=== PATIENT | male | born 2005 | race Caucasian/White ===

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

== ENCOUNTER 2025-08-26 15:48 | Emergency (ER) | payer MEDICAID ==
[2025-08-26 16:06] VITALS: TEMP 97
[2025-08-26] MEDS ORDERED: Ativan 2 MG/1 ML VIAL ONE (16:23)
--- NOTE | 2025-08-26 16:28 | ERPHSYRPT ---
- History of Present Illness Time Seen by Provider: 08/26/25 15:54 Source: patient Exam Limitations: no limitations Patient Subjective Stated Complaint: . Triage Nursing Assessment: . Physician History: Patient is an everyday drinker presenting with request to become sober. Patient states that he has been drinking alcohol almost every day for 2 years. States that he has hit rock bottom. Patient states that he has been drinking a case of beer a day plus hard liquor. He states all this initiated when he was unable to see his son anymore. States that he has lost his job. He is currently living with friends. He has no other falls or trauma. States that his last drink was last night. Currently has no suicidal homicidal ideation. Reviewing patient's chart he does have a history of suicidal ideation and polysubstance abuse. Patient states he is willing to do anything to quit drinking and is willing to be admitted to the hospital or transferred to a care facility voluntarily. Allergies/Adverse Reactions: amoxicillin [Amoxicillin] Allergy (Verified 08/26/25 15:55) Penicillins Allergy (Verified 08/26/25 15:55) Hx Tetanus, Diphtheria Vaccination/Date Given: No Hx Influenza Vaccination/Date Given: No Hx Pneumococcal Vaccination/Date Given: No Immunizations Up to Date: Yes Travel Risk - International Travel Have you traveled outside of the country in past 3 weeks: No - Emerging Infectious Disease Are you exhibiting symptoms associated with any current EIDs: No - Past Medical History Psycho-Social History: Depression - Past Surgical History Past Surgical History: Yes Neuro Surgical History: No Pertinent History Cardiac: No Pertinent History Respiratory: No Pertinent History Gastrointestinal: No Pertinent History Genitourinary: No Pertinent History Musculoskeletal: Orthopedic Surgery Other Surgical History: right wrist - Social History Smoking Status: Current every day smoker Exposure to second hand smoke: Yes Drug Use: marijuana - Social Determinants of Health Will the patient participate in the screening: Yes Do you worry about a steady place to live?: No Do you have any problems with any of the following?: No known problems In the past 12 months,have you had to go without utilities?: No Transportation Issues: No Has anyone in your support network made you feel unsafe?: No Have you or anyone in your house had to go w/o enough food: No - Nursing Vital Signs Nursing Vital Signs: Initial Vital Signs Pulse Rate 106 H 08/26/25 16:00 Respiratory Rate 16 08/26/25 16:00 Blood Pressure 134/85 08/26/25 16:00 O2 Sat by Pulse Oximetry 98 08/26/25 16:00 Pain Scale Pain Intensity 0 - Physical Exam SpO2 Interpretation: normal SpO2: 97 Comments: 08/26/25 16:25 Review of Systems Constitutional: Negative for fever. HENT: Negative for congestion. Respiratory: Negative for shortness of breath. Cardiovascular: Negative for chest pain. Gastrointestinal: Negative for abdominal pain. Genitourinary: Negative for dysuria. Musculoskeletal: Negative for back pain. Skin: Negative for rash. Neurological: Negative for headaches. Psychiatric/Behavioral: Negative for behavioral problems. All other systems reviewed and are negative. Physical Exam Vitals signs and nursing note reviewed. Constitutional: Appearance: Patient is well-developed. Diaphoresis HENT: Head: Normocephalic and atraumatic. Eyes: Conjunctiva/sclera: Conjunctivae normal. Neck: Musculoskeletal: Normal range of motion. Trachea: No tracheal deviation. Cardiovascular: Rate and Rhythm: Tachycardia. heart sounds normal. Pulmonary: Effort: Pulmonary effort is normal. No respiratory distress. Abdominal: Palpations: Abdomen is soft. Musculoskeletal: General: No deformity. Skin: General: Skin is warm and dry. Neurological/ Psychiatric: Mental Status: Mental status, behavior, interaction with environment is appropriate for patient's age and condition - Course Nursing assessment & vital signs reviewed: Yes EKG Interpreted by Me: Sinus Rhythm (EKG demonstrates sinus rhythm, rate of 107, ME interval 128, QRS 95, QTc is 423, no STEMI or other ST changes) Ordered Tests: Active Orders 24 hr Category Date Time Status Acoustical Material Worker STAT Care 08/26/25 16:08 Active EKG-ER Only STAT Care 08/26/25 16:07 Active IV Insertion STAT Care 08/26/25 16:07 Active ACETAMINOPHEN Stat Lab 08/26/25 16:25 Completed CBC W DIFF Stat Lab 08/26/25 16:25 Completed CMP Stat Lab 08/26/25 16:25 Completed ETHYL ALCOHOL Stat Lab 08/26/25 16:25 Completed SALICYLATE Stat Lab 08/26/25 16:25 Completed UA W/RFX UR CULTURE Stat Lab 08/26/25 18:15 Completed Urine Triage Profile Stat Lab 08/26/25 18:15 Completed Medication Summary Discontinued Medications Generic Name Dose Route Start Last Admin Trade Name Freq PRN Reason Stop Dose Admin Sodium Chloride 1,000 mls @ 999 mls/hr 08/26/25 16:07 08/26/25 17:39 Sodium Chloride 0.9% 1000 Ml IV 08/26/25 17:07 Infused .Q1H1M STA Infusion Sodium Chloride Confirm 08/26/25 16:24 Sodium Chloride 0.9% 1000 Ml Administered 08/26/25 16:25 Dose 1,000 mls @ ud .ROUTE .STK-MED ONE Sodium Chloride 1,000 mls @ 999 mls/hr 08/26/25 17:18 08/26/25 18:33 Sodium Chloride 0.9% 1000 Ml IV 08/26/25 18:18 Infused .Q1H1M STA Infusion Sodium Chloride Confirm 08/26/25 17:24 Sodium Chloride 0.9% 1000 Ml Administered 08/26/25 17:25 Dose 1,000 mls @ ud .ROUTE .STK-MED ONE Lorazepam 2 mg 08/26/25 16:07 08/26/25 16:30 Lorazepam 2 Mg/1 Ml 2 Mg Vial IV 08/26/25 16:08 2 mg STAT ONE Administration Lorazepam Confirm 08/26/25 16:23 Lorazepam 2 Mg/1 Ml 2 Mg Vial Administered 08/26/25 16:24 Dose 2 mg .ROUTE .STK-MED ONE Thiamine HCl 100 mg 08/26/25 16:07 08/26/25 16:30 Thiamine Hcl 100 Mg Tablet PO 08/26/25 16:08 100 mg STAT ONE Administration Lab/Rad Data: Laboratory Result Diagrams 08/26/25 16:25 08/26/25 16:25 Laboratory Results 08/26/25 08/26/25 08/26/25 Range/Units 18:15 18:15 16:25 WBC (4.23-9.07) x10^3/uL RBC (4.63-6.08) x10^6/uL Hgb (13.7-17.5) g/dL Hct (40.1-51.0) % MCV (79.0-92.2) fL MCH (25.7-32.2) pg MCHC (32.3-36.5) g/dL RDW (11.6-14.4) % Plt Count (163-337) x10^3/uL MPV (9.4-12.4) fL Gran % (34.0-67.9) % Immature Gran % (Auto) (0.001-0.429) % Nucleat RBC Rel Count (0.00-0.2) % Eos # (Auto) (0.04-0.54) x10^3/uL Immature Gran # (Auto) (0.001-0.031) x10^3u/L Absolute Lymphs (auto) (1.32-3.57) x10^3/uL Absolute Monos (auto) (0.30-0.82) x10^3/uL Absolute Nucleated RBC (0.00-0.012) x10^3u/L Lymphocytes % (21.8-53.1) % Monocytes % (5.3-12.2) % Eosinophils % (0.8-7.0) % Basophils % (0.2-1.2) % Absolute Granulocytes (1.78-5.38) x10^3/uL Basophils # (0.01-0.08) x10^3/uL Sodium 135 (135-145) mmol/L Potassium 4.0 (3.5-5.1) mmol/L Chloride 100 (98-107) mmol/L Carbon Dioxide 25 (22-30) mmol/L Anion Gap 14.3 (5-15) MEQ/L BUN 11 (9-20) mg/dL Creatinine 1.06 (0.66-1.25) mg/dL Estimated GFR 101.8 ML/MIN Glucose 82 (74-106) mg/dL Calcium 9.0 (8.4-10.2) mg/dL Total Bilirubin 1.00 (0.2-1.3) mg/dL AST 34 (17-59) U/L ALT 21 (0-50) U/L Alkaline Phosphatase 87 (38-126) U/L Serum Total Protein 7.9 (6.3-8.2) g/dL Albumin 4.8 (3.5-5.0) g/dL Urine Color Yellow (Yellow) Urine Appearance Clear (Clear) Urine pH 6.0 (4.6-8.0) Ur Specific Clark <=1.005 (1.005-1.030) Urine Protein Negative (Negative) Urine Glucose (UA) Negative (Negative) mg/dL Urine Ketones 15 A (Negative) Urine Blood Negative (Negative) Urine Nitrite Negative (Negative) Urine Bilirubin Negative (Negative) Urine Urobilinogen 0.2 (0.2) mg/dL Ur Leukocyte Esterase Negative (Negative) U Hyaline Cast (Auto) NONE SEEN (0-2) /LPF Urine Microscopic RBC 0-2 (0-5) /HPF Urine Microscopic WBC 0-2 (0-5) /HPF Ur Epithelial Cells None Seen (None Seen) /HPF Urine Bacteria None Seen (None Seen) /HPF Urine Culture Reflexed NO (NO) Salicylates < 1.0 L (2-20) mg/dL Urine Opiates Level NEGATIVE (NEGATIVE) Ur Methadone NEGATIVE (NEGATIVE) Acetaminophen < 10 L (10-30) ug/ml Urine Barbiturates NEGATIVE (NEGATIVE) Ur Phencyclidine (PCP) NEGATIVE (NEGATIVE) Urine Amphetamine NEGATIVE (NEGATIVE) U Benzodiazepine Level NEGATIVE (NEGATIVE) Urine Cocaine NEGATIVE (NEGATIVE) Urine Marijuana (THC) POSITIVE A (NEGATIVE) Ethyl Alcohol < 10 (0-10) mg/dL 08/26/25 Range/Units 16:25 WBC 7.6 (4.23-9.07) x10^3/uL RBC 5.10 (4.63-6.08) x10^6/uL Hgb 16.0 (13.7-17.5) g/dL Hct 46.8 (40.1-51.0) % MCV 91.8 (79.0-92.2) fL MCH 31.4 (25.7-32.2) pg MCHC 34.2 (32.3-36.5) g/dL RDW 12.2 (11.6-14.4) % Plt Count 295 (163-337) x10^3/uL MPV 9.2 L (9.4-12.4) fL Gran % 73.6 H (34.0-67.9) % Immature Gran % (Auto) 0.4 (0.001-0.429) % Nucleat RBC Rel Count 0.0 (0.00-0.2) % Eos # (Auto) 0.15 (0.04-0.54) x10^3/uL Immature Gran # (Auto) 0.03 (0.001-0.031) x10^3u/L Absolute Lymphs (auto) 1.12 L (1.32-3.57) x10^3/uL Absolute Monos (auto) 0.66 (0.30-0.82) x10^3/uL Absolute Nucleated RBC 0.00 (0.00-0.012) x10^3u/L Lymphocytes % 14.8 L (21.8-53.1) % Monocytes % 8.7 (5.3-12.2) % Eosinophils % 2.0 (0.8-7.0) % Basophils % 0.5 (0.2-1.2) % Absolute Granulocytes 5.56 H (1.78-5.38) x10^3/uL Basophils # 0.04 (0.01-0.08) x10^3/uL Sodium (135-145) mmol/L Potassium (3.5-5.1) mmol/L Chloride (98-107) mmol/L Carbon Dioxide (22-30) mmol/L Anion Gap (5-15) MEQ/L BUN (9-20) mg/dL Creatinine (0.66-1.25) mg/dL Estimated GFR ML/MIN Glucose (74-106) mg/dL Calcium (8.4-10.2) mg/dL Total Bilirubin (0.2-1.3) mg/dL AST (17-59) U/L ALT (0-50) U/L Alkaline Phosphatase (38-126) U/L Serum Total Protein (6.3-8.2) g/dL Albumin (3.5-5.0) g/dL Urine Color (Yellow) Urine Appearance (Clear) Urine pH (4.6-8.0) Ur Specific Clark (1.005-1.030) Urine Protein (Negative) Urine Glucose (UA) (Negative) mg/dL Urine Ketones (Negative) Urine Blood (Negative) Urine Nitrite (Negative) Urine Bilirubin (Negative) Urine Urobilinogen (0.2) mg/dL Ur Leukocyte Esterase (Negative) U Hyaline Cast (Auto) (0-2) /LPF Urine Microscopic RBC (0-5) /HPF Urine Microscopic WBC (0-5) /HPF Ur Epithelial Cells (None Seen) /HPF Urine Bacteria (None Seen) /HPF Urine Culture Reflexed (NO) Salicylates (2-20) mg/dL Urine Opiates Level (NEGATIVE) Ur Methadone (NEGATIVE) Acetaminophen (10-30) ug/ml Urine Barbiturates (NEGATIVE) Ur Phencyclidine (PCP) (NEGATIVE) Urine Amphetamine (NEGATIVE) U Benzodiazepine Level (NEGATIVE) Urine Cocaine (NEGATIVE) Urine Marijuana (THC) (NEGATIVE) Ethyl Alcohol (0-10) mg/dL - Progress Progress: improved Progress Note: 08/26/25 16:26 Patient likely having alcohol withdrawal, tachycardia, diaphoresis, appears uncomfortable. Plan for 2 mg of Ativan to start out with. Patient will need to be medically evaluated. If patient continues to be voluntary, we will admit him to the hospital or to a detox center. Plan for fluids, thiamine, basic labs, continued close cardiac monitoring. We will continue CIWA score. 08/26/25 18:46 Patient's heart rate improved with fluids and Ativan. Patient is resting comfortably. Awaiting urine sample. Patient will then be evaluated by detox center. Transfer of care to Dr. Bray at 7 PM. He will follow-up on all labs and imaging, reexamine patient. Ultimate disposition per his reexam. Counseled pt/family regarding: lab results, diagnosis, need for follow-up, rad results - Departure Clinical Impression: Alcohol withdrawal Condition: Stable Critical Care Time: No Referrals: BAY GONZALEZ [COURTESY STAFF, [facility]] - Follow up/PCP as directed
[2025-08-26] MEDS: Ativan 2 MG/1 ML VIAL IV ONE (16:30)
[2025-08-26] MEDS: VITAMIN B-1 100 MG PO ONE (16:30)
[2025-08-26 16:40] LABS: BASOPHIL % 0.5 % (0.2-1.2); Basophil (Absolute #) 0.04 x10^3/uL (0.01-0.08); Eosinophil (Absolute #) 0.15 x10^3/uL (0.04-0.54); Hematocrit 46.8 % (40.1-51.0); Hemoglobin 16.0 g/dL (13.7-17.5); IMMATURE GRAN # 0.03 x10^3u/L (0.001-0.031); IMMATURE GRAN % 0.4 % (0.001-0.429); Lymphocyte (Absolute #) 1.12 x10^3/uL (1.32-3.57); Mean Corpuscular Hemoglobin 31.4 pg (25.7-32.2); Mean Corpuscular Hgb Concent. 34.2 g/dL (32.3-36.5); Monocyte (Absolute #) 0.66 x10^3/uL (0.30-0.82); NUCLEATED RBC # 0.00 x10^3u/L (0.00-0.012); NUCLEATED RBC % 0.0 % (0.00-0.2); Platelet Count 295 x10^3/uL (163-337); Red Blood Count 5.10 x10^6/uL (4.63-6.08); White Blood Count 7.6 x10^3/uL (4.23-9.07)
[2025-08-26 16:44] LABS: Calcium 9.0 mg/dL (8.4-10.2); Carbon Dioxide 25 mmol/L (22-30); Creatinine 1 1.06 mg/dL (0.66-1.25); EST GLOMERULAR FILTRATION RATE 101.8 ML/MIN; ETHYL ALCOHOL < 10 mg/dL (0-10); Glucose 82 mg/dL (74-106); Potassium 4.0 mmol/L (3.5-5.1); SGOT/AST 34 U/L (17-59); SGPT/ALT 21 U/L (0-50); Total Protein 7.9 g/dL (6.3-8.2)
[2025-08-26 18:27] LABS: Glucose, Urine Negative (Negative); Protein,Urine Dip Negative (Negative); RBC 0-2 /HPF (0-5); WBC 0-2 /HPF (0-5)
[2025-08-26 18:41] LABS: Amphetamine,Urine NEGATIVE (NEGATIVE); Barbiturate,Urine NEGATIVE (NEGATIVE); Benzodiazepine,Urine NEGATIVE (NEGATIVE); Cocaine,Urine NEGATIVE (NEGATIVE); Methadone,Urine NEGATIVE (NEGATIVE); Opiate,Urine NEGATIVE (NEGATIVE); PCP,Urine NEGATIVE (NEGATIVE); THC,Urine POSITIVE (NEGATIVE)
[2025-08-26 22:03] VITALS: BP 101/65; PULSE 97; RESP 17; O2SAT 98
--- NOTE | 2025-08-26 22:12 | ERPHSYRPT ---
- History of Present Illness Time Seen by Provider: 08/26/25 15:54 Patient Subjective Stated Complaint: . Triage Nursing Assessment: . Allergies/Adverse Reactions: amoxicillin [Amoxicillin] Allergy (Verified 08/26/25 15:55) Penicillins Allergy (Verified 08/26/25 15:55) Home Medications: No Reportable Medications [No Reported Medications] 08/26/25 [History] Hx Tetanus, Diphtheria Vaccination/Date Given: No Hx Influenza Vaccination/Date Given: No Hx Pneumococcal Vaccination/Date Given: No Immunizations Up to Date: Yes Travel Risk - International Travel Have you traveled outside of the country in past 3 weeks: No - Emerging Infectious Disease Are you exhibiting symptoms associated with any current EIDs: No - Past Medical History Psycho-Social History: Depression - Past Surgical History Past Surgical History: Yes Neuro Surgical History: No Pertinent History Cardiac: No Pertinent History Respiratory: No Pertinent History Gastrointestinal: No Pertinent History Genitourinary: No Pertinent History Musculoskeletal: Orthopedic Surgery Other Surgical History: right wrist - Social History Smoking Status: Current every day smoker Exposure to second hand smoke: Yes Drug Use: marijuana - Social Determinants of Health Will the patient participate in the screening: Yes Do you worry about a steady place to live?: No Do you have any problems with any of the following?: No known problems In the past 12 months,have you had to go without utilities?: No Transportation Issues: No Has anyone in your support network made you feel unsafe?: No Have you or anyone in your house had to go w/o enough food: No - Nursing Vital Signs Nursing Vital Signs: Initial Vital Signs Pulse Rate 106 H 08/26/25 16:00 Respiratory Rate 16 08/26/25 16:00 Blood Pressure 134/85 08/26/25 16:00 O2 Sat by Pulse Oximetry 98 08/26/25 16:00 Pain Scale Pain Intensity 0 - Physical Exam SpO2 Interpretation: normal SpO2: 98 Ordered Tests: Active Orders 24 hr Category Date Time Status AMA [Release AMA] OM.NOW Care 08/26/25 22:09 Active Insole Filler STAT Care 08/26/25 16:08 Active EKG-ER Only STAT Care 08/26/25 16:07 Active IV Insertion STAT Care 08/26/25 16:07 Active ACETAMINOPHEN Stat Lab 08/26/25 16:25 Completed CBC W DIFF Stat Lab 08/26/25 16:25 Completed CMP Stat Lab 08/26/25 16:25 Completed ETHYL ALCOHOL Stat Lab 08/26/25 16:25 Completed SALICYLATE Stat Lab 08/26/25 16:25 Completed UA W/RFX UR CULTURE Stat Lab 08/26/25 18:15 Completed Urine Triage Profile Stat Lab 08/26/25 18:15 Completed Medication Summary Discontinued Medications Generic Name Dose Route Start Last Admin Trade Name Mario PRN Reason Stop Dose Admin Sodium Chloride 1,000 mls @ 999 mls/hr 08/26/25 16:07 08/26/25 17:39 Sodium Chloride 0.9% 1000 Ml IV 08/26/25 17:07 Infused .Q1H1M STA Infusion Sodium Chloride Confirm 08/26/25 16:24 Sodium Chloride 0.9% 1000 Ml Administered 08/26/25 16:25 Dose 1,000 mls @ ud .ROUTE .STK-MED ONE Sodium Chloride 1,000 mls @ 999 mls/hr 08/26/25 17:18 08/26/25 18:33 Sodium Chloride 0.9% 1000 Ml IV 08/26/25 18:18 Infused .Q1H1M STA Infusion Sodium Chloride Confirm 08/26/25 17:24 Sodium Chloride 0.9% 1000 Ml Administered 08/26/25 17:25 Dose 1,000 mls @ ud .ROUTE .STK-MED ONE Lorazepam 2 mg 08/26/25 16:07 08/26/25 16:30 Lorazepam 2 Mg/1 Ml 2 Mg Vial IV 08/26/25 16:08 2 mg STAT ONE Administration Lorazepam Confirm 08/26/25 16:23 Lorazepam 2 Mg/1 Ml 2 Mg Vial Administered 08/26/25 16:24 Dose 2 mg .ROUTE .STK-MED ONE Thiamine HCl 100 mg 08/26/25 16:07 08/26/25 16:30 Thiamine Hcl 100 Mg Tablet PO 08/26/25 16:08 100 mg STAT ONE Administration Lab/Rad Data: Laboratory Result Diagrams 08/26/25 16:25 08/26/25 16:25 Laboratory Results 08/26/25 08/26/25 08/26/25 Range/Units 18:15 18:15 16:25 WBC (4.23-9.07) x10^3/uL RBC (4.63-6.08) x10^6/uL Hgb (13.7-17.5) g/dL Hct (40.1-51.0) % MCV (79.0-92.2) fL MCH (25.7-32.2) pg MCHC (32.3-36.5) g/dL RDW (11.6-14.4) % Plt Count (163-337) x10^3/uL MPV (9.4-12.4) fL Gran % (34.0-67.9) % Immature Gran % (Auto) (0.001-0.429) % Nucleat RBC Rel Count (0.00-0.2) % Eos # (Auto) (0.04-0.54) x10^3/uL Immature Gran # (Auto) (0.001-0.031) x10^3u/L Absolute Lymphs (auto) (1.32-3.57) x10^3/uL Absolute Monos (auto) (0.30-0.82) x10^3/uL Absolute Nucleated RBC (0.00-0.012) x10^3u/L Lymphocytes % (21.8-53.1) % Monocytes % (5.3-12.2) % Eosinophils % (0.8-7.0) % Basophils % (0.2-1.2) % Absolute Granulocytes (1.78-5.38) x10^3/uL Basophils # (0.01-0.08) x10^3/uL Sodium 135 (135-145) mmol/L Potassium 4.0 (3.5-5.1) mmol/L Chloride 100 (98-107) mmol/L Carbon Dioxide 25 (22-30) mmol/L Anion Gap 14.3 (5-15) MEQ/L BUN 11 (9-20) mg/dL Creatinine 1.06 (0.66-1.25) mg/dL Estimated GFR 101.8 ML/MIN Glucose 82 (74-106) mg/dL Calcium 9.0 (8.4-10.2) mg/dL Total Bilirubin 1.00 (0.2-1.3) mg/dL AST 34 (17-59) U/L ALT 21 (0-50) U/L Alkaline Phosphatase 87 (38-126) U/L Serum Total Protein 7.9 (6.3-8.2) g/dL Albumin 4.8 (3.5-5.0) g/dL Urine Color Yellow (Yellow) Urine Appearance Clear (Clear) Urine pH 6.0 (4.6-8.0) Ur Specific Coleman <=1.005 (1.005-1.030) Urine Protein Negative (Negative) Urine Glucose (UA) Negative (Negative) mg/dL Urine Ketones 15 A (Negative) Urine Blood Negative (Negative) Urine Nitrite Negative (Negative) Urine Bilirubin Negative (Negative) Urine Urobilinogen 0.2 (0.2) mg/dL Ur Leukocyte Esterase Negative (Negative) U Hyaline Cast (Auto) NONE SEEN (0-2) /LPF Urine Microscopic RBC 0-2 (0-5) /HPF Urine Microscopic WBC 0-2 (0-5) /HPF Ur Epithelial Cells None Seen (None Seen) /HPF Urine Bacteria None Seen (None Seen) /HPF Urine Culture Reflexed NO (NO) Salicylates < 1.0 L (2-20) mg/dL Urine Opiates Level NEGATIVE (NEGATIVE) Ur Methadone NEGATIVE (NEGATIVE) Acetaminophen < 10 L (10-30) ug/ml Urine Barbiturates NEGATIVE (NEGATIVE) Ur Phencyclidine (PCP) NEGATIVE (NEGATIVE) Urine Amphetamine NEGATIVE (NEGATIVE) U Benzodiazepine Level NEGATIVE (NEGATIVE) Urine Cocaine NEGATIVE (NEGATIVE) Urine Marijuana (THC) POSITIVE A (NEGATIVE) Ethyl Alcohol < 10 (0-10) mg/dL 08/26/ Range/Units 16:25 WBC 7.6 (4.23-9.07) x10^3/uL RBC 5.10 (4.63-6.08) x10^6/uL Hgb 16.0 (13.7-17.5) g/dL Hct 46.8 (40.1-51.0) % MCV 91.8 (79.0-92.2) fL MCH 31.4 (25.7-32.2) pg MCHC 34.2 (32.3-36.5) g/dL RDW 12.2 (11.6-14.4) % Plt Count 295 (163-337) x10^3/uL MPV 9.2 L (9.4-12.4) fL Gran % 73.6 H (34.0-67.9) % Immature Gran % (Auto) 0.4 (0.001-0.429) % Nucleat RBC Rel Count 0.0 (0.00-0.2) % Eos # (Auto) 0.15 (0.04-0.54) x10^3/uL Immature Gran # (Auto) 0.03 (0.001-0.031) x10^3u/L Absolute Lymphs (auto) 1.12 L (1.32-3.57) x10^3/uL Absolute Monos (auto) 0.66 (0.30-0.82) x10^3/uL Absolute Nucleated RBC 0.00 (0.00-0.012) x10^3u/L Lymphocytes % 14.8 L (21.8-53.1) % Monocytes % 8.7 (5.3-12.2) % Eosinophils % 2.0 (0.8-7.0) % Basophils % 0.5 (0.2-1.2) % Absolute Granulocytes 5.56 H (1.78-5.38) x10^3/uL Basophils # 0.04 (0.01-0.08) x10^3/uL Sodium (135-145) mmol/L Potassium (3.5-5.1) mmol/L Chloride (98-107) mmol/L Carbon Dioxide (22-30) mmol/L Anion Gap (5-15) MEQ/L BUN (9-20) mg/dL Creatinine (0.66-1.25) mg/dL Estimated GFR ML/MIN Glucose (74-106) mg/dL Calcium (8.4-10.2) mg/dL Total Bilirubin (0.2-1.3) mg/dL AST (17-59) U/L ALT (0-50) U/L Alkaline Phosphatase (38-126) U/L Serum Total Protein (6.3-8.2) g/dL Albumin (3.5-5.0) g/dL Urine Color (Yellow) Urine Appearance (Clear) Urine pH (4.6-8.0) Ur Specific Coleman (1.005-1.030) Urine Protein (Negative) Urine Glucose (UA) (Negative) mg/dL Urine Ketones (Negative) Urine Blood (Negative) Urine Nitrite (Negative) Urine Bilirubin (Negative) Urine Urobilinogen (0.2) mg/dL Ur Leukocyte Esterase (Negative) U Hyaline Cast (Auto) (0-2) /LPF Urine Microscopic RBC (0-5) /HPF Urine Microscopic WBC (0-5) /HPF Ur Epithelial Cells (None Seen) /HPF Urine Bacteria (None Seen) /HPF Urine Culture Reflexed (NO) Salicylates (2-20) mg/dL Urine Opiates Level (NEGATIVE) Ur Methadone (NEGATIVE) Acetaminophen (10-30) ug/ml Urine Barbiturates (NEGATIVE) Ur Phencyclidine (PCP) (NEGATIVE) Urine Amphetamine (NEGATIVE) U Benzodiazepine Level (NEGATIVE) Urine Cocaine (NEGATIVE) Urine Marijuana (THC) (NEGATIVE) Ethyl Alcohol (0-10) mg/dL - Progress Progress Note: 08/26/25 22:[address] Strange, the patient was going to go to a detox unit, he has been drinking alcohol, he is not suicidal or homicidal, He did receive Ativan earlier this afternoon, the present time he is requesting to sign out AGAINST MEDICAL ADVICE, He is awake and alert and appropriate and able to make an appropriate decision to sign AGAINST MEDICAL ADVICE he understands the consequences - Departure Departure Disposition: AMA Clinical Impression: Alcohol withdrawal Qualifiers: Complication of substance-induced condition: uncomplicated Qualified Code(s): F 10.930 - Alcohol use, unspecified with withdrawal, uncomplicated Condition: Stable Critical Care Time: No Referrals: BAY GONZALEZ [COURTESY STAFF, [facility]] - Follow up/PCP as directed
== END 2025-08-26 22:10 | disposition left against medical advice (07) ==
LOC: ED 15:48
DX: F10.239 Alcohol dependence with withdrawal, unspecified (principal); Z72.0 Tobacco use